=== PATIENT | female | born 1965 | race Caucasian/White ===

== ENCOUNTER 2017-05-18 10:55 | Emergency (ER) | payer SELFPAY ==
[2017-05-18 11:05] VITALS: BP 162/75; BMI 29.2
[2017-05-18 11:42] LABS: BILIRUBIN,URINE NEGATIVE (NEGATIVE); BLOOD/HEMOGLOBIN,URINE NEGATIVE (NEGATIVE); GLUCOSE, URINE NEGATIVE (NEGATIVE); KETONES,URINE NEGATIVE (NEGATIVE); LEUKOCYTE ESTERASE ,URINE 1+ (NEGATIVE); NITRITES,URINE NEGATIVE (NEGATIVE); PROTEIN,URINE 1+ (NEGATIVE); UROBILINOGEN,URINE 1+ (NORMAL)
[2017-05-18 11:50] LABS: APPEARANCE,URINE CLEAR (CLEAR); BACTERIA,URINE NEGATIVE /HPF (NEGATIVE); COLOR,URINE YELLOW (YELLOW); MUCUS,URINE RARE /HPF (NEGATIVE); RBC,URINE NEGATIVE /HPF (NEGATIVE); SQUAMOUS EPITHELIAL CELL,UR RARE /HPF (NEGATIVE)
--- NOTE | 2017-05-18 11:57 | DR.GENAD ---
HPI - PCP Primary Care Physician: NONE - Complaint/Symptoms Chief Complaint Doctors Comments: Patient admits to left back pain for two to three months worse today. Denies fever,or trauma. Chief Complaint:: HURTING IN BACK AND KIDNEY - Source History Provided: Patient - Mode of Arrival Mode of Arrival: Ambulatory - Timing Onset of Chief Complaint: 05/15/17 PMH - PMH Past Medical History: Yes Past Medical History: COPD, Hypertension Past Medical History Comment: CANCER IN LIPS AND NECK Past Surgical History: Yes Surgical History: , Hysterectomy - Family History History of Family Medical Conditions: Yes Family Medical History: Cancer, [place], Heart Failure, Hypertension - Social History Does patient currently use any type of tobacco product: Yes Have you used tobacco products in the last 12 months: Yes Type of Tobacco Use: Cigarettes How many years tobacco product used: 40 Does any household member use tobacco: No Alcohol Use: None Do you use any recreational Drugs:: No Lives With: Family Lives Where: Home - infectious screening In the last 2 months have you had wt loss of >10#?: NO Have you had fever, night sweats or hemotysis?: No Have you traveled outside the country in the last 6 months?: No Isolation: Standard ROS - Review of Systems Eyes: No Symptoms Reported ENTM: No Symptoms Reported Respiratoy: No Symptoms Reported Cardiovascular: No Symptoms Reported Gastrointestinal/Abdominal: No Symptoms Reported Genitourinary: No Symptoms Reported Neurological: No Symptoms Reported Musculoskeletal: Back Pain, Left Integumentary: No Symptoms Reported Hematologic/Lymphatic: No Symptoms Reported Endocrine: No Symptoms Reported Psychiatric: No Symptoms Reported All Other Systems: Reviewed and Negative PE - Vital Signs Vitals: Temperature 97.8 F Pulse Rate 77 Respiratory Rate 18 Blood Pressure 162/75 O2 Sat by Pulse Oximetry 98 - General Limitations: No Limitations General Appearance: Alert, In No Apparent Distress - Head Head Exam: Normal Inspection, Atraumatic - Eyes Eye exam: Normal Appearance, PERRL, EOMI - ENT ENT Exam: Normal Exam External Ear Exam: Normal External Inspection TM/Canal Exam: Bilateral Normal Nose Exam: Normal Nose Exam Mouth Exam: Normal Inspection Throat Exam: Normal Inspection - Neck Neck Exam: Normal Inspection - Chest Chest Inspection: Normal Inspection - Respiratory Respiratory Exam: Normal Lung Sounds Bilat Respiratory Exam: Bilateral Clear to Auscultation - Cardiovascular Cardiovascular Exam: Regular Rate, Normal Rhythm - Abdominal Exam Abdominal Exam: Normal Inspection Abdominal Tenderness: negative: RUQ, RLQ, LUQ, LLQ, Epigastrium, Suprapubic, Diffuse, Mild, Moderate, Severe, Other - Back Back Exam: Normal Inspection - Neurologic Neurological Exam: Alert, Oriented X3, CN II-XII Intact - Psychiatric Psychiatric Exam: Normal Affect - Skin Skin Exam: Warm, Dry, Intact Course - Reevaluation 1st: Improved ROR - Labs Reviewed Laboratory: Specimen Type Clean catch urine 05/18/17 11:34 Urine Color Yellow (YELLOW) 05/18/17 11:34 Urine Appearance Clear (CLEAR) 05/18/17 11:34 Urine pH 6.0 (5.0 - 8.0) 05/18/17 11:34 Ur Specific [place] 1.025 (1.000-1.030) 05/18/17 11:34 Urine Protein 1+ (NEGATIVE) 05/18/17 11:34 Urine Glucose (UA) Negative (NEGATIVE) 05/18/17 11:34 Urine Ketones Negative (NEGATIVE) 05/18/17 11:34 Urine Occult Blood Negative (NEGATIVE) 05/18/17 11:34 Urine Nitrite Negative (NEGATIVE) 05/18/17 11:34 Urine Bilirubin Negative (NEGATIVE) 05/18/17 11:34 Urine Urobilinogen 1+ (NORMAL) 05/18/17 11:34 Ur Leukocyte Esterase 1+ (NEGATIVE) 05/18/17 11:34 Urine RBC Negative /HPF (NEGATIVE) 05/18/17 11:34 Urine WBC 1 - 2 /HPF (NEGATIVE) 05/18/17 11:34 Ur Squamous Epith Cells Rare /HPF (NEGATIVE) 05/18/17 11:34 Urine Bacteria Negative /HPF (NEGATIVE) 05/18/17 11:34 Urine Mucus Rare /HPF (NEGATIVE) 05/18/17 11:34 Ur Culture Indicated? No/not indicated 05/18/17 11:34 - XRAY XRAY Interpreted by: Radiologist (Lumbar spine: The lumbar vertebra are well aligned. There is mild disc space narrowing throughout with mild marginal osteophytes throughout. The vertebral body height is well maintained throughout. No fracture or subluxation is seen. There are mild sclerotic changes of the facets inferiorly with no pars defects. The bones are osteopenic. The pedicles are intact. Impression: Mild degenerative disck changes throughout and osteopenia with no acute abnormality seen.) - Diagnosis Discharge Problem: DJD (degenerative joint disease), lumbar Qualifiers: Spinal osteoarthritis complication: without myelopathy or radiculopathy Qualified Code(s): M47.816 - Spondylosis without myelopathy or radiculopathy, lumbar region - Discharge Plan Condition: Stable - Follow ups/Referrals Follow ups/Referrals: NFD,None [Primary Care Provider] - 3 days - Instructions
[2017-05-18] MEDS ORDERED: TORADOL 30 MG VIAL IM ONE (11:58)
[2017-05-18] MEDS ORDERED: TORADOL 30 MG VIAL ONE (12:02)
--- NOTE | 2017-05-18 14:02 | RAD ---
HISTORY: Pain Study: Lumbar spine series Comparison: None Findings: The lumbar vertebra are well aligned. There is mild disc space narrowing throughout with mild margin al osteophytes throughout. The vertebral body height is well maintained throughout. No fracture or s ubluxation is seen. There are mild sclerotic changes of the facets inferiorly with no pars defects. The bones are osteopenic. The pedicles are intact. IMPRESSION: Mild degenerative disk changes throughout and osteopenia with no acute abnormality seen . Mild osteoarthritic changes of the facets inferiorly with no pars defects. Reported By:
== END 2017-05-18 14:24 | disposition home or self-care (01) ==
LOC: ER 10:55
DX: M47.816 Spondylosis without myelopathy or radiculopathy, lumbar region (principal)
CPT/HCPCS: 72100; 81001; 96372; 99282; 99283; J1885

== ENCOUNTER 2018-01-16 09:11 | Emergency (ER) | payer SELFPAY ==
[2018-01-16] MEDS ORDERED: NS 1000 ML 1,000 ML ONE (09:17)
[2018-01-16 09:23] VITALS: BP 112/61; BMI 26.2
[2018-01-16] MEDS ORDERED: NS 1000 ML 1,000 ML IV SCH (10:00)
--- NOTE | 2018-01-16 10:01 | DR.LACERAT ---
HPI - Time Seen Time seen: 09:30 - Primary Care Physician Primary Care Physician: victor hugo remember the name - Complaints Chief Complaint Doctors Comments: I agree with history. 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 While in the bath room fainted. Chief Complaint:: Patient was at work and cut left thumb and had a syncope episode approx 5 minutes later per EMS. Patient states she is not normally bothered by blood. Bandaid noted to left thumb. No active bleeding. Self Treatment fo Chief Complaint: Patient stated she took 0.5 tab of percocet today that is not prescribed to her d/t chronic back pain - Source History Provided: Patient - Mode of Arrival Mode of Arrival: EMS - Timing Onset of Chief Complaint: 01/16/18 PMH - PMH Past Medical History: Yes Past Medical History: COPD, Depression, Hypertension Past Medical History Comment: bipolar Past Surgical History: Yes Surgical History: , Hysterectomy Past Surgical History Comment: neck surgery - Family History History of Family Medical Conditions: Yes Family Medical History: Cancer, [place], Heart Failure, Hypertension - Social History Does patient currently use any type of tobacco product: Yes Have you used tobacco products in the last 12 months: Yes Type of Tobacco Use: Cigarettes Does any household member use tobacco: No Do you use any recreational Drugs:: No Lives Where: Home - infectious screening In the last 2 months have you had wt loss of >10#?: NO Have you had fever, night sweats or hemotysis?: No Have you traveled outside the country in the last 6 months?: No Isolation: Standard ROS - Review of Systems Eyes: No Symptoms Reported ENTM: No Symptoms Reported Respiratoy: No Symptoms Reported Cardiovascular: No Symptoms Reported Gastrointestinal/Abdominal: No Symptoms Reported Genitourinary: No Symptoms Reported Neurological: No Symptoms Reported Musculoskeletal: No Symptoms Reported Integumentary: No Symptoms Reported Hematologic/Lymphatic: No Symptoms Reported Endocrine: No Symptoms Reported Psychiatric: No Symptoms Reported All Other Systems: Reviewed and Negative PE - Vital Signs Vitals: Temperature 97.5 F Pulse Rate 60 Respiratory Rate 19 Blood Pressure 112/61 O2 Sat by Pulse Oximetry 98 - General Limitations: No Limitations General Appearance: Alert - Head Head Exam: Normal Inspection, Atraumatic - Eyes Eye exam: Normal Appearance, PERRL, EOMI - ENT ENT Exam: Normal Exam - Neck Neck Exam: Normal Inspection, Full ROM - Chest Chest Inspection: Normal Inspection - Respiratory Respiratory Exam: Normal Lung Sounds Bilat Respiratory Exam: Bilateral Clear to Auscultation - Cardiovascular Cardiovascular Exam: Regular Rate, Normal Rhythm - Abdominal Exam Abdominal Exam: Normal Inspection, Normal Bowel Sounds Abdominal Tenderness: negative: RUQ, RLQ, LUQ, LLQ, Epigastrium, Suprapubic, Diffuse, Mild, Moderate, Severe, Other - Extremities Extremities Exam: Normal Inspection, Full ROM - Back Back Exam: Normal Inspection, Full ROM - Neurologic Neurological Exam: Alert, Oriented X3, CN II-XII Intact - Skin Skin Exam: Warm, Dry, Intact, Other (left thumb with a superficial laceration) Type of Lesion: Rash, Abscess Distribution: Generalized Description: Tenderness Course - Treatment Treatment: Glue to superficial laceration - Reevaluation 1st: Improved - Diagnosis Discharge Problem: Vasovagal syncope Laceration of thumb Qualifiers: Encounter type: initial encounter Damage to nail status: without damage Laterality: left - Discharge Plan Condition: Stable - Follow ups/Referrals Follow ups/Referrals: NFD,None [Primary Care Provider] - 3 days - Instructions
== END 2018-01-16 10:21 | disposition home or self-care (01) ==
LOC: ER 09:11
PROC: 0XQMXZZ Repair Left Thumb, External Approach (ICD-10-PCS; principal; 2018-01-16)
DX: S61.012A Laceration without foreign body of left thumb without damage to nail, initial encounter (principal); R55 Syncope and collapse; W26.0XXA Contact with knife, initial encounter; Y92.69 Other specified industrial and construction area as the place of occurrence of the external cause
CPT/HCPCS: 12001; 96365; 99000; 99282; 99283